=== PATIENT | female | born 1965 | race Caucasian/White ===

== ENCOUNTER 2018-09-05 16:07 | Observation (INO) ==
[2018-09-05 17:16] LABS: INR 0.9; PT Patient Result 10.3 SECS
[2018-09-05 17:26] LABS: Alanine Aminotransferase 33 U/L (13-56); Albumin 3.8 G/DL (3.4-5.0); Alkaline Phosphatase 30 U/L (45-117); Aspartate Amino Transferase 21 U/L (0-37); Blood Urea Nitrogen 16 MG/DL (7-18); Calcium 9.6 MG/DL (8.5-10.1); Glucose 88 MG/DL (74-106); Total Protein 7.5 G/DL (6.4-8.3); Troponin I < 0.015 NG/ML (0.00-0.045)
[2018-09-05] MEDS ORDERED: KETOROLAC 30 MG/1 ML VIAL IV STA (18:20)
[2018-09-05] MEDS ORDERED: ONDANSETRON 4 MG/2 ML VIAL IV STA (18:20)
[2018-09-05] MEDS ORDERED: cefTRIAXone 1,000 MG in SODIUM CHLORIDE 0.9% 100 ML IV STA (18:20)
[2018-09-05] MEDS ORDERED: SODIUM CHLORIDE 0.9% 500 ML IV STA (18:20)
[2018-09-05 18:25] LABS: Basophils % 0.5 % (0.0-0.8); Eosinophils # 0.1 10*3/uL (0.0-0.87); Eosinophils % 0.9 % (0.00-10.9); Hematocrit 39.4 VOL% (35.7-47.0); Hemoglobin 12.5 GM/DL (12.0-16.0); Immature Granulocytes % 0.3 %; Immature Granulocytes Absolute 0.02 #; Lymphocytes # 2.9 10*3/uL (1.4-4.0); Lymphocytes % 45.6 % (21.3-54.2); Mean Corpuscular HGB Conc 31.7 GM/DL (32-36); Mean Corpuscular Volume 91.8 FL (87-102); Mean Platelet Volume 11.9 FL (9.6-12.0); Monocytes % 5.9 % (1.7-12.7); Neutrophils % 46.8 % (38.7-73.9); Platelet Count 257 T/CUMM (130-400); Red Blood Count 4.29 MC/CUMM (3.8-5.5); Red Cell Distribution Width 12.4 % (9.3-17.3); White Blood Count 6.4 T/CUMM (4-12)
[2018-09-05 18:37] LABS: Apearance,Urine CLEAR (Clear); Bilirubin,Urine Negative (Negative); Blood, Urine Negative (Negative); Glucose,Urine (UA) Negative (Negative); Ketones,Urine Negative (Negative); Nitrite,Urine Negative (Negative); Protein,Urine Negative; RBC,Urine 1 /HPF (0-4); Urine Color Yellow (Yellow); Urine Specific Gravity 1.004 (1.001-1.035); Urine Urobilinogen < 2.0 EU/DL (0.2-1.0)
[2018-09-05 18:51] LABS: Barbiturates Screen,Urine Negative (Negative); Benzodiazepines Screen,Urine Negative (Negative); Cannabinoid Screen,Urine Negative (Negative); Opiate Screen,Urine Negative (Negative); Phencyclidine Screen,Urine Negative (Negative)
[2018-09-05] MEDS ORDERED: MECLIZINE 25 MG TABLET PO STA (18:53)
[2018-09-05 20:40] LABS: Alanine Aminotransferase 31 U/L (13-56); Albumin 3.3 G/DL (3.4-5.0); Alkaline Phosphatase 24 U/L (45-117); Amylase 46 U/L (25-115); Aspartate Amino Transferase 18 U/L (0-37); Bilirubin,Total < 0.39 MG/DL (0.2-1.0); Blood Urea Nitrogen 16 MG/DL (7-18); Calcium 8.7 MG/DL (8.5-10.1); Glucose 85 MG/DL (74-106); Osmolality,Calculated 287.7 MOS/KG (273-304)
[2018-09-05] MEDS ORDERED: ALBUTEROL 2.5 MG/3 ML NEB RESP TX PRN (20:44)
[2018-09-05] MEDS ORDERED: ONDANSETRON 4 MG/2 ML VIAL IV PRN (20:49)
[2018-09-05] MEDS ORDERED: ENOXAPARIN 40 MG/0.4 ML SYRINGE SUBCUT SCH (21:00)
[2018-09-05] MEDS: SODIUM CHLORIDE 0.45% 1,000 ML IV SCH (22:40)
[2018-09-05] MEDS: DOCUSATE SODIUM 100 MG CAPSULE PO SCH (22:44)
[2018-09-05] MEDS: ACETAMINOPHEN 500 MG TABLET PO PRN (22:44)
[2018-09-06 05:31] LABS: Basophils % 0.5 % (0.0-0.8); Eosinophils # 0.2 10*3/uL (0.0-0.87); Eosinophils % 2.5 % (0.00-10.9); Hematocrit 36.2 VOL% (35.7-47.0); Hemoglobin 11.2 GM/DL (12.0-16.0); Immature Granulocytes % 0.2 %; Immature Granulocytes Absolute 0.01 #; Lymphocytes # 2.7 10*3/uL (1.4-4.0); Lymphocytes % 45.1 % (21.3-54.2); Mean Corpuscular HGB Conc 30.9 GM/DL (32-36); Mean Corpuscular Volume 93.3 FL (87-102); Mean Platelet Volume 11.7 FL (9.6-12.0); Monocytes % 8.5 % (1.7-12.7); Neutrophils % 43.2 % (38.7-73.9); Platelet Count 210 T/CUMM (130-400); Red Blood Count 3.88 MC/CUMM (3.8-5.5); Red Cell Distribution Width 12.5 % (9.3-17.3); White Blood Count 5.9 T/CUMM (4-12)
[2018-09-06 06:11] LABS: Calcium 8.5 MG/DL (8.5-10.1); Osmolality,Calculated 286.8 MOS/KG (273-304); Risk Ratio 3.81; VLDL CHOLESTEROL 32.2 MG/DL
[2018-09-06] MEDS ORDERED: PANTOPRAZOLE 40 MG TABLET PO SCH (09:00)
[2018-09-06] MEDS ORDERED: MULTIVITAMIN (CENTRUM) TABLET PO SCH (09:00)
[2018-09-06] MEDS: DOCUSATE SODIUM 100 MG CAPSULE PO SCH (09:37)
[2018-09-06] MEDS: ACETAMINOPHEN 500 MG TABLET PO PRN (11:25)
[2018-09-06] MEDS: SODIUM CHLORIDE 0.45% 1,000 ML IV SCH (11:25)
[2018-09-06 11:43] VITALS: BP 138/85
[2018-09-19] MEDS ORDERED: Etanercept [Enbrel Sureclick] 50 MG SUBCUT SCH (20:45)
== END 2018-09-06 15:05 | disposition home or self-care (01) ==
LOC: N.ED 16:07 → N.TELEN 16:07
PROVIDERS: ADMIT Internal Medicine; ATTEND Internal Medicine

== ENCOUNTER 2021-02-02 14:58 | Inpatient (IN) ==
[2021-02-02 15:37] LABS: Basophils # 0.1 10*3/uL (0.0-0.2); Basophils % 0.8 % (0.0-0.8); Eosinophils % 0.5 % (0.00-10.9); Hematocrit 41.6 VOL% (35.7-47.0); Hemoglobin 13.6 GM/DL (12.0-16.0); Immature Granulocytes % 0.2 %; Immature Granulocytes Absolute 0.01 #; Lymphocytes % 33.2 % (21.3-54.2); Mean Corpuscular HGB Conc 32.7 GM/DL (32-36); Mean Corpuscular Volume 89.5 FL (87-102); Monocytes % 7.2 % (1.7-12.7); Neutrophils % 58.1 % (38.7-73.9); Platelet Count 259 T/CUMM (130-400); Red Blood Count 4.65 MC/CUMM (3.8-5.5); Red Cell Distribution Width 13.3 % (9.3-17.3); White Blood Count 6.1 T/CUMM (4-12)
[2021-02-02 16:00] LABS: Albumin 3.9 G/DL (3.4-5.0); Bilirubin,Total 0.6 MG/DL (0.20-1.00); Calcium 10.2 MG/DL (8.5-10.1); Osmolality,Calculated 277.5 MOS/KG (273-304); Potassium 4.2 MMOL/L (3.5-5.1); Total Protein 7.3 G/DL (6.4-8.2)
[2021-02-02] MEDS ORDERED: ONDANSETRON 4 MG/2 ML VIAL IV PRN (18:20)
[2021-02-02] MEDS ORDERED: DEXTROSE 50% 25 GM/50 ML VIAL IV PRN (18:20)
[2021-02-02] MEDS ORDERED: DEXTROSE 50% 25 GM/50 ML SYRINGE IV PRN (18:20)
[2021-02-02] MEDS ORDERED: GLUCAGON 1 MG VIAL IM PRN ×2 (18:20)
[2021-02-02] MEDS ORDERED: hydrALAZINE 20 MG/1 ML VIAL IV PRN (18:20)
[2021-02-02] MEDS ORDERED: ALBUTEROL/IPRATROPIUM 3 ML NEB RESP TX PRN (18:20)
[2021-02-02] MEDS ORDERED: ACETAMINOPHEN 325 MG TABLET ONE (20:00)
[2021-02-02] MEDS: ACETAMINOPHEN 325 MG TABLET PO PRN ×2 (20:10→23:15)
[2021-02-02] MEDS ORDERED: ATORVASTATIN 80 MG TABLET PO SCH (21:00)
[2021-02-02] MEDS: METOPROLOL TARTRATE 25 MG TABLET PO SCH (21:15)
[2021-02-02] MEDS: SODIUM CHLORIDE 0.9% 1,000 ML IV SCH (21:16)
[2021-02-02] MEDS: ENOXAPARIN 80 MG/0.8 ML SYRINGE SUBCUT SCH (21:16)
[2021-02-02] MEDS: NITROGLYCERIN 2% OINT 1 INCH/GM PACK TOP SCH (23:14)
[2021-02-03] MEDS: INSULIN LISPRO 100 UNIT/ML SUBCUT SCH ×3 (00:30→11:40)
[2021-02-03 05:28] LABS: Basophils # 0.1 10*3/uL (0.0-0.2); Basophils % 0.8 % (0.0-0.8); Eosinophils # 0.1 10*3/uL (0.0-0.87); Eosinophils % 2.1 % (0.00-10.9); Hematocrit 37.6 VOL% (35.7-47.0); Hemoglobin 12.1 GM/DL (12.0-16.0); Immature Granulocytes % 0.2 %; Immature Granulocytes Absolute 0.01 #; Lymphocytes # 2.9 10*3/uL (1.4-4.0); Lymphocytes % 47.2 % (21.3-54.2); Mean Corpuscular HGB Conc 32.2 GM/DL (32-36); Mean Corpuscular Volume 91.3 FL (87-102); Mean Platelet Volume 11.3 FL (9.6-12.0); Monocytes % 8.9 % (1.7-12.7); Neutrophils % 40.8 % (38.7-73.9); Platelet Count 227 T/CUMM (130-400); Red Blood Count 4.12 MC/CUMM (3.8-5.5); Red Cell Distribution Width 13.3 % (9.3-17.3); White Blood Count 6.2 T/CUMM (4-12)
[2021-02-03 05:53] LABS: Potassium 3.7 MMOL/L (3.5-5.1); Risk Ratio 4.22; Thyroid Stimulating Hormone 1.39 uIU/ml (0.358-3.74)
[2021-02-03] MEDS: NITROGLYCERIN 2% OINT 1 INCH/GM PACK TOP SCH ×2 (06:30→11:45)
[2021-02-03] MEDS: ENOXAPARIN 80 MG/0.8 ML SYRINGE SUBCUT SCH (06:30)
[2021-02-03] MEDS ORDERED: ASPIRIN EC 81 MG TABLET PO SCH (09:00)
[2021-02-03] MEDS ORDERED: PANTOPRAZOLE 40 MG TABLET PO SCH (09:00)
[2021-02-03] MEDS: SODIUM CHLORIDE 0.9% 1,000 ML IV SCH (09:28)
[2021-02-03] MEDS: ACETAMINOPHEN 325 MG TABLET PO PRN ×2 (09:30→14:59)
[2021-02-03] MEDS: METOPROLOL TARTRATE 25 MG TABLET PO SCH (09:30)
[2021-02-03] MEDS ORDERED: KETOROLAC 15 MG/1 ML VIAL IV PRN (15:27)
[2021-02-03 15:34] VITALS: BP 127/75
== END 2021-02-03 17:52 | disposition home or self-care (01) | DRG 312 ==
LOC: N.ED 14:58 → N.EDINP 18:49 → N.TELEN 20:12
PROVIDERS: ADMIT Internal Medicine; ATTEND Internal Medicine